=== PATIENT | female | born 1990 | race Hispanic/Latino ===

== ENCOUNTER 2017-04-16 15:46 | Emergency (ER) | payer OTHER ==
[~2017-04-16] VITALS: Ht 154.9 cm; Wt 54.5 kg
[2017-04-16 15:46] VITALS: BP 111/56
[2017-04-16 18:45] LABS: BASO % 0.2 % (0.0-1.0); EOS % 0.6 % (0.0-3.0); IMMATURE GRANULOCYTE % 0.2 % (0-0); LYMPH # 2.1 10^3/uL (1.5-6.5); LYMPH % 33.3 % (24.0-44.0); MEAN CORPUSCULAR HGB CONC 33.3 g/dl (32.0-36.5); MEAN CORPUSCULAR VOLUME 90.4 fl (80.0-96.0); MONO # 0.5 10^3/uL (0.0-0.8); MONO % 8.3 % (0.0-5.0); NEUTROPHILS # 3.6 10^3/uL (1.8-7.7); NEUTROPHILS % 57.4 % (36.0-66.0); PLATELET COUNT, AUTOMATED 268 10^3/uL (150-450); RED CELL DISTRIBUTION WIDTH 12.6 % (11.5-14.5); WHITE BLOOD COUNT 6.2 10^3/uL (4.0-10.0)
--- NOTE | 2017-04-16 18:50 | REPUSA ---
Clinical history: bleeding. Findings: Real-time transabdominal and transvaginal ultrasound images of the pelvis were obtained. An anteverted uterus is noted, measuring 9.7 x 4.7 6.1 cm. The uterus demonstrates normal echotexture a nd echogenicity. The endometrial canal demonstrates a gestational sac with a mean sac diameter 2.4 mi llimeters. No pole or yolk sac is identified. The right ovary measures 3.8 x 2.4 x 2.7 cm. Ther e is a complex right ovarian cyst measuring 4.1 x 2.4 x 2.8 cm. There is a simple left ovarian cyst m easuring 1.9 x 1.7 x 1.5 cm. The left ovary measures 1.7 x 1.7 x 2.2 cm. No adnexal masses are seen. Color Doppler flow is seen within both ovaries. There is no evidence of free fluid. Impression: 1. Suspected intrauterine gestational sac. No evidence of a pole or yolk sac at this time. The gestation measures approximate 4 weeks 6 days by ultrasound measurements. 2. Hemorrhagic right ovarian cyst. 3. Simple left ovarian cyst. 4. Differential diagnosis includes early , missed , or less likely, ectopic pregnanc y. Follow-up with serial serum beta hCG levels is recommended for further evaluation.
[2017-04-16 19:07] LABS: ANION GAP 6 MEQ/L (8-16); BLOOD UREA NITROGEN 7 MG/DL (7-18); CARBON DIOXIDE LEVEL 26 MEQ/L (21-32); CHLORIDE LEVEL 106 MEQ/L (98-107); GLOMERULAR FILTRATION RATE > 60.0 (>60); GLUCOSE, FASTING 86 MG/DL (70-105); HCG, SERUM QUANTITATIVE 232 MIU/ML; SODIUM LEVEL 138 MEQ/L (136-145)
== END 2017-04-16 19:53 | disposition home or self-care (01) ==
LOC: M ED 15:46
DX: O21.9 Vomiting of pregnancy, unspecified (principal); O34.81 Maternal care for other abnormalities of pelvic organs, first trimester; Z3A.01 Less than 8 weeks gestation of pregnancy

== ENCOUNTER → 2017-04-18 | Outpatient (CLI) | payer OTHER | LOC: M LAB 13:10 | PROVIDERS: ATTEND Physician Assistant | DX: O46.90 Antepartum hemorrhage, unspecified, unspecified trimester (principal); Z3A.22 22 weeks gestation of pregnancy ==

== ENCOUNTER 2017-05-16 10:00 | Emergency (ER) | payer OTHER ==
[~2017-05-16] VITALS: Ht 154.9 cm; Wt 61.4 kg
[2017-05-16] MEDS ORDERED: PREN1PAK PO (10:09)
[2017-05-16 11:03] LABS: BASO % 0.1 % (0.0-1.0); EOS % 0.5 % (0.0-3.0); IMMATURE GRANULOCYTE % 0.4 % (0-0); LYMPH # 1.8 10^3/uL (1.5-6.5); LYMPH % 23.1 % (24.0-44.0); MEAN CORPUSCULAR HEMOGLOBIN 30.9 pg (27.0-33.0); MEAN CORPUSCULAR HGB CONC 34.2 g/dl (32.0-36.5); MEAN CORPUSCULAR VOLUME 90.3 fl (80.0-96.0); MONO # 0.5 10^3/uL (0.0-0.8); MONO % 6.5 % (0.0-5.0); NEUTROPHILS # 5.3 10^3/uL (1.8-7.7); NEUTROPHILS % 69.4 % (36.0-66.0); PLATELET COUNT, AUTOMATED 242 10^3/uL (150-450); RED CELL DISTRIBUTION WIDTH 12.8 % (11.5-14.5); WHITE BLOOD COUNT 7.7 10^3/uL (4.0-10.0)
[2017-05-16 11:08] LABS: MUCUS, URINE RFX SMALL (NEGATIVE); SPECIFIC GRAVITY UR AUTO RFX 1.027 (1.002-1.035); SQUAM EPITHELIAL CELL UR AURFX 3 /HPF (0-6)
[2017-05-16 11:43] LABS: ALBUMIN 3.6 GM/DL (3.2-5.2); ALBUMIN/GLOBULIN RATIO 0.95 (1.00-1.93); ALKALINE PHOSPHATASE 76 U/L (45-117); ALT/SGPT 25 U/L (12-78); ANION GAP 9 MEQ/L (8-16); AST/SGOT 16 U/L (7-37); BILIRUBIN,TOTAL 0.6 MG/DL (0.2-1.0); BLOOD UREA NITROGEN 8 MG/DL (7-18); CALCIUM LEVEL 8.7 MG/DL (8.5-10.1); CARBON DIOXIDE LEVEL 24 MEQ/L (21-32); CHLORIDE LEVEL 106 MEQ/L (98-107); CREATININE FOR GFR 0.57 MG/DL (0.55-1.02); GLOMERULAR FILTRATION RATE > 60.0 (>60); GLUCOSE, FASTING 89 MG/DL (70-105); HCG, SERUM QUANTITATIVE 147447 MIU/ML; POTASSIUM SERUM 4.3 MEQ/L (3.5-5.1); SODIUM LEVEL 139 MEQ/L (136-145); TOTAL PROTEIN 7.4 GM/DL (6.4-8.2)
--- NOTE | 2017-05-16 13:22 | REP ---
FIRST TRIMESTER ULTRASOUND: Real-time sonographic evaluation of the gravid uterus performed utilizing transabdominal technique. There is a single living intrauterine gestation. Estimated gestational age 9 weeks based on a crown-rump length of 23 mm. EDC 12/19/2017. heart rate 178 beats per minute. There is a left sided subchorionic hemorrhage measuring 3.3 x 0.4 x 2.4 cm. Complex cystic structure in the right ovary probably represents a corpus luteum. This measures about 2.3 cm in maximum diameter. No torsion is seen in either ovary with blood flow seen in each ovary with duplex Doppler evaluation. Signed by Jay Diego MD 05/17/2017 09:11 A
--- NOTE | 2017-05-16 14:42 | ED PDOC ---
Post-Departure Follow-Up Spoke with Dr. Steen at [facility], discussed results and the patient will see her today Libra Wooten May 16, 2017 14:42
[2017-05-16 14:49] VITALS: BP 107/64
== END 2017-05-16 14:54 | disposition home or self-care (01) ==
LOC: M ED 10:00
DX: O20.9 Hemorrhage in early pregnancy, unspecified (principal); Z3A.09 9 weeks gestation of pregnancy